=== PATIENT | female | born 1995 | race Caucasian/White ===

== ENCOUNTER 2021-04-21 17:39 | Inpatient (IN) | payer MEDICAID, OTHER ==
[~2021-04-21] VITALS: Ht 149.9 cm; Wt 100.4 kg
[~2021-04-21 17:39] MED LIST: DOCU-131 PO; FERR325T18 PO; IBUP-1223 PO; OXYC1TAB12 PO
[2021-04-21] MEDS ORDERED: HYDROmorphone 2 MG/ML, 1ML ONE (17:44)
[2021-04-21] MEDS ORDERED: SODIUM CHLORIDE FLUSH 10ML SYR IVF ONE (18:00)
[2021-04-21] MEDS ORDERED: HYDROmorphone 1 MG/ML, 1ML INJ IV ONE (18:00)
[2021-04-21] MEDS ORDERED: PROPOFOL 10 MG/ML, 20ML ONE ×2 (18:01→20:19)
--- NOTE | 2021-04-21 18:18 | NUR ---
PT BIB EMS AFTER FALLING IN [place] B[place] P[place] THE [place]. "I JUMPED IN AND FELT A SNAP". PT RIGHT LOWER LEG HAS OBV DEFORMITY. PT GIVEN 200 [employer] TECHNICAL SUPPORT [employer] AND 4MG ZOFRAN. CMS INTACT. PT CONNECTED TO ALL MONITORS. ROOM TO SET UP FOR PROCEDURAL SEDATION - ALL SAFETY MEASURES IN PLACE. PT MEDICATED FOR PAIN.
[2021-04-21] MEDS ORDERED: PROPOFOL 10 MG/ML, 20ML IVPush ONE (19:00)
--- NOTE | 2021-04-21 19:40 | NUR ---
PROCEDURAL SEDATION COMPLETE. SEE PRINTOUT FOR VITALS. PT TOLERATED WELL
[2021-04-21] MEDS ORDERED: ONDANSETRON 2MG/ML, 2ML ONE (20:19)
[2021-04-21] MEDS ORDERED: PROPOFOL 10 MG/ML, 50ML ONE (20:19)
[2021-04-21] MEDS ORDERED: CEFAZOLIN 1,000 MG ONE (20:19)
[2021-04-21] MEDS ORDERED: DEXAMETHASONE 4 MG/ML, 1ML ONE (20:19)
[2021-04-21] MEDS ORDERED: ALBUTEROL SULFATE 200 PUFFS/8.5 GR INH ONE (20:19)
[2021-04-21] MEDS ORDERED: MIDAZOLAM 1 MG/ML, 2ML ONE (20:19)
[2021-04-21] MEDS ORDERED: MAGNESIUM HYDROXIDE 8%, 30ML UDC PO PRN (20:30)
[2021-04-21] MEDS ORDERED: ALUMINUM/MAG/SIMETHICONE 30 ML UDC PO PRN (20:30)
[2021-04-21] MEDS ORDERED: SENNA/DOCUSATE TABLET PO PRN (20:30)
[2021-04-21] MEDS ORDERED: ACETAMINOPHEN 325 MG TABLET PO PRN ×2 (20:30→21:00)
[2021-04-21] MEDS ORDERED: ENOXAPARIN 40 MG/0.4 ML SQ SCH (20:30)
[2021-04-21] MEDS ORDERED: ONDANSETRON 2MG/ML, 2ML IVPush PRN ×2 (20:30→21:00)
[2021-04-21] MEDS ORDERED: BISACODYL 10 MG SUPP PR PRN (20:30)
[2021-04-21] MEDS ORDERED: PROMETHAZINE 25 MG/ML, 1ML IM PRN (20:30)
[2021-04-21] MEDS ORDERED: HYDROcodone/APAP 5/325 TABLET PO PRN (20:30)
[2021-04-21] MEDS ORDERED: morphine SULFATE 10 MG/ML, 1ML IVPush PRN ×2 (20:30→21:00)
[2021-04-21] MEDS ORDERED: EPINEPHRINE 1 MG/ML, 1ML ONE (20:36)
[2021-04-21] MEDS ORDERED: BUPIVACAINE/PF 0.5% ONE (20:36)
[2021-04-21] MEDS ORDERED: OXYcodone 5 MG/5 ML ORAL.SOL UDC PO PRN (21:00)
[2021-04-21] MEDS ORDERED: LABETALOL 5MG/ML, 20ML IV PRN (21:00)
[2021-04-21] MEDS ORDERED: MEPERIDINE/PF 25MG/0.5ML IVPush PRN (21:00)
[2021-04-21] MEDS ORDERED: FENTANYL PF 100 MCG/2ML IV PRN (21:00)
[2021-04-21] MEDS ORDERED: DIPHENHYDRAMINE 50 MG/ML, 1ML IVPush PRN (21:00)
[2021-04-21] MEDS ORDERED: DIAZEPAM 5 MG/ML, 2ML IVPush PRN (21:00)
[2021-04-21] MEDS ORDERED: ALBUTEROL/IPRATROPIUM 2.5MG/0.5MG, 3 ML NPPB PRN (21:00)
[2021-04-21] MEDS ORDERED: EPHEDRINE 50 MG/ML, 1ML IVPush PRN (21:00)
[2021-04-21] MEDS ORDERED: PROMETHAZINE 25 MG/ML, 1ML IVPush PRN (21:00)
[2021-04-21] MEDS ORDERED: EPHEDRINE 50 MG/ML, 1ML IM PRN (21:00)
[2021-04-21] MEDS ORDERED: BUPIVACAINE/PF-EPI 0.5% 1:200K INFIL ONE (21:14)
[2021-04-21] MEDS ORDERED: ALBUTEROL/IPRATROPIUM 2.5MG/0.5MG, 3 ML ONE (22:38)
[2021-04-21] MEDS ORDERED: MEPERIDINE/PF 25MG/ML,1ML ONE (22:39)
[2021-04-21] MEDS ORDERED: OXYcodone 5 MG/5 ML ORAL.SOL UDC ONE (22:40)
[2021-04-21] MEDS ORDERED: FENTANYL PF 100 MCG/2ML ONE (22:47)
[2021-04-21 23:47] VITALS: BP 123/86
[2021-04-22] MEDS: KETOROLAC 30 MG/1 ML IVPush SCH ×2 (01:22→09:13)
[2021-04-22] MEDS: DOCUSATE 100 MG CAPSULE PO SCH ×2 (01:22→09:12)
[2021-04-22 02:25] VITALS: BP 107/64
[2021-04-22] MEDS: OXYcodone/APAP 5/325MG TABLET PO PRN ×2 (02:54→06:54)
[2021-04-22] MEDS: CEFAZOLIN PMX 2GM/50ML 50 ML IVPB SCH ×2 (03:58→12:19)
[2021-04-22] MEDS ORDERED: PANTOPRAZOLE 20MG TABLET PO SCH (06:00)
[2021-04-22 09:00] VITALS: BP 101/57
[2021-04-22] MEDS ORDERED: MULTIVITAMINS/MINERALS TABLET PO SCH (09:00)
== END 2021-04-22 12:58 | disposition home or self-care (01) | DRG 494 ==
LOC: ED 18:53 → EDIP 19:20 → OBSVTOIN 20:21 → 4NE 20:47
PROVIDERS: ADMIT Orthopaedic Surgery; ATTEND Orthopaedic Surgery
PROC: 0QSG06Z Reposition Right Tibia with Intramedullary Internal Fixation Device, Open Approach (ICD-10-PCS; principal; 2021-04-21 19:45)
DX: S82.241A Displaced spiral fracture of shaft of right tibia, initial encounter for closed fracture (principal); K21.9 Gastro-esophageal reflux disease without esophagitis; F17.210 Nicotine dependence, cigarettes, uncomplicated; S82.441A Displaced spiral fracture of shaft of right fibula, initial encounter for closed fracture; Z20.822 Contact with and (suspected) exposure to COVID-19; Y93.89 Activity, other specified; Y92.89 Other specified places as the place of occurrence of the external cause; Y99.8 Other external cause status; X50.1XXA Overexertion from prolonged static or awkward postures, initial encounter
CPT/HCPCS: 73590; 73610; 76000; 96374; 99285; S0020; 87635; 94640; C1713; G0378; J0171; J0690; J1100; J1170; J1650; J1885; J2175; J2250; J2405; J2704; J3010